=== PATIENT | male | born 1985 | race Caucasian/White ===

== ENCOUNTER 2016-12-02 11:52 | Inpatient (IN) | payer OTHER ==
[~2016-12-02] VITALS: Ht 182.9 cm; Wt 86.2 kg
--- NOTE | ~2016-12-02 | INDIVTXPL2 ---
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 Goal: Client is to help build his self-esteem and address his bullying from childhood to help his recovery. Objectives/Activities to achieve goal: 1. Client is to write down 10-20 good qualities about himself, and then interview 8 peers and 3 staff to name 2 good qualities they see in him and add these to his list. Share with counselor. Due Date: 12/24/16 Complete: Incomplete: 2. Client is to learn/get oriented about EMDR and review safe-place with client. See counselor note. Due Date: 12/20/16 Complete: Incomplete: 3. Client if willing, can do EMDR on his childhood trauma of bullying with counselor to help strengthen his self-esteem and recovery. See counselor note. Due Date: 12/25/16 Complete: Incomplete: Client Signature Date Counselor Signaure: Date Outcome/Measurement of Progress Towards Goal: Counselor Signature: Date "
--- NOTE | ~2016-12-02 | TXPLANREV ---
"PATIENT: SUMIT KING | | [facility] UNIT #: [id number] | [address] AGE/SEX: 31 M : 89 | [address] | [place] [address] ADMIT/REG DATE: 12/02/16 | ROOM: [facility] LOC: ADTC | ADTC | Treatment Plan/Staffing Review Date: 12/24/16 Treatment plan was reviewed and determined appropriate as written: yes, client is finishing feelings letter to parents, did EMDR on shock of dads cancer diagnosis and got alot out of it. Now is to work on Relapse prevention and call sponsor. Treatment plan was reviewed and the following changes/addition/deletions are necessary: Discharge plans were reviewed and determined appropriate as previously documented: Client discharges 12/30/16 and has interview with [facility] 12/26 at 9am and they may have bed for him Saturday 12/30. He has been referred to [facility]. Discharge plans were reviewed and determined to be as follows: Other pertinent issues discussed during this staffing review include: Client is doing well, switched to a positive attitude about staying in [place] and applying to the [facility] or if no openings even the [facility]. He was selected by staff to be one of the next possible client leaders. Staff Present: Tomasz Latham, Michelle Santizo, Suzan Johnson, Dereck Rose, Lucila Ramirez, Yen Hook PRIMARY COUNSELOR: Gloria Elliott Client Signature Counselor Signature Date Time "
--- NOTE | ~2016-12-02 | INDIVTXPL2 ---
"PATIENT: SUMIT KING | | [facility] UNIT #: [id number] | [address] AGE/SEX: 31 M : 89 | [address] | [place] [address] ADMIT/REG DATE: 12/02/16 | ROOM: [facility] LOC: ADTC | ADTC | Individualized Treatment Plan DATE: 12/17/16 Problem Statement/Issue Identified: Client relapsed/returned to drug usage after previous treatment attempts. Goal: Client is to learn how to work a stronger AA/NA program and prevent further relapses, identifying relapse tendencies and a plan to avoid relapse. Objectives/Activities to achieve goal: 1. Client is to attend Relapse Prevention classes every Friday while in treatment and participate. See class notes. Due Date: 12/24/16 Complete: Incomplete: 2. Client is to fill out A Relapse Prevention Packet, identifying his top 5 relapse triggers and develop a plan of how to avoid relapse. Share with counselor. Due Date: 12/30/16 Complete: Incomplete: Client Signature Date Counselor Signaure: Date Outcome/Measurement of Progress Towards Goal: Counselor Signature: Date "
--- NOTE | ~2016-12-02 | RESCARESUM ---
"PATIENT: SUMIT KING | | [facility] UNIT #: [id number] | [address] AGE/SEX: 31 M : 89 | [address] | [place] [address] ADMIT/REG DATE: 12/02/16 | ROOM: [facility] LOC: ADTC | ADT | Summary of Residential Care Primary Counselor: BEATRIZ Bone Date of Admission: 12/02/16 Date of Discharge: 12/30/16 Referral Source: self, corporate associate attorney and [facility] Primary Care Provider Prior to Admission: no doctor listed Admitting Diagnosis: 304.40 Stimulant use disorder-severe, 304.30 Cannabis use disorder-severe, 305.1 Tobacco dependence and dental caries. 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 He did complete Step 1 and owned his powerlessness over drugs/alcohol. Client did get and call a sponsor while in treatment and appeared to like meetings. 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 Initially he wanted to return home but when the staff talked about a [facility] would help him the best he became excited about staying in [place] and going to the [facility] house. He did write feelings letters and shared it with his parents his last day of treatment before they took him to the [facility]. They also seemed supportive of him and client showed some acceptance that his dad refuses to do any more Chemotherapy for his cancer. Client did do EMDR on his dads diagnosis of Cancer and the shock of it. Client did great job processing rating the disturbance at a 10 and down to a 1 by end of session on disturbance scale 0-10. Client had brought up being bullied by kids in school but he only rated the disturbance a 1 so did not address it with EMDR. Client did do Self-esteem assignment and showed good progress with the help of being selected to be a client service professional. Client did complete Relapse Prevention packet. Continued Obstacles to Sobriety/Relapse Issues: boredom, isolation, self-pity, stress/worry, negative attitude, worry about others or parents instead of himself, not asking for help, if struggles with life/work/not having a GF which hurts his self-esteem. Family Issues Addressed: Clients family were not able to attend family program but did come his last day for a family session and client did write feelings letter and shared it with them. He expressed that he was mad at his dad for not wanting to treat his cancer anymore but he now can understand and accept this. He did give them hugs and state he loves them. x Individual Therapy x Group Therapy x Educational Series on Substance Abuse Parents/Significant Others Attended Family Program Acute Medical Problems During the Course of Treatment Transferred to Hospital During the Course of Treatment PATIENT: SUMIT KING | | [facility] UNIT #: [id number] | [facility] AGE/SEX: 31 M : 89 | [address] | [place] [address] ADMIT/REG DATE: 12/02/16 | ROOM: [facility] LOC: ADT | [facility] | Summary of Residential Care x Accepting of Substance Abuse Problem Non-accepting of Substance Abuse Problem Required Psychological or Psychiatric Consultation During the Course of Treatment Completed AA Step # 1 During This Level of Care Significant Incidences During Treatment: Client was selected by staff to be one of the client leaders due to his apparent seriousness about his recovery. Reason For Discharge: x Completed Residential TX Goals and Ready For Next Level of Care Left Tx Against Medical Advice/Treatment Goals Not Complete Completed Residential Tx Goals But Refusing Continuing Care Recommendations Discharged Due to Noncompliance/Treatment Goals not Completed Discharged Earlier Than Planned Due to: Continuing Care Plan/Recommendations: Intensive Partial Care x Sponsor Partial Care x AA Meetings/NA Meetings Outpatient Co-dependency Services Therapeutic Community x / [facility] [place] [address] [place] [facility] Marriage Counseling Other Specific Continuing Care Plan: Client is being referred to the [facility] on 12/30/16 at 2pm. He also is referred to AA/NA and to call his sponsor daily. PRIMARY COUNSELOR: Gloria Elliott"
--- NOTE | ~2016-12-02 | INDIVTXPL2 ---
"PATIENT: SUMIT KING | | [facility] UNIT #: [id number] | [address] AGE/SEX: 31 M : 89 | [address] | [place] [address] ADMIT/REG DATE: 12/02/16 | ROOM: [facility] LOC: ADTC | ADTC | Individualized Treatment Plan DATE: 12/13/16 Problem Statement/Issue Identified: Client is experiencing family discord and distancing as a result of past alcohol or drug usage and selfish attitude. Goal: Client is to attend Family program to learn about effects of addiction on him and his family, identifying how his use hurt parents and his feelings to help him in recovery. Objectives/Activities to achieve goal: 1. Client is to write feelings letters to mom and to dad, owning how his addiction and attitude has hurt them and his feelings. Share with counselor/group/family session. Also is to own in his letter to mom his demanding/angry attitude on phone about cigs. Due Date: 12/30/16 Complete: Incomplete: 2. Client is to attend Family program on 12/19 and 12/23 to learn about effects of addiction on him and his family and is to participate in class. See notes. Due Date: 12/23/16 Complete: Incomplete: 3. If able, will have a family session on phone or his last day of treatment with his parents to process feelings letters and hear their feelings/awareness to build healthier communication and support. See family session note. Due Date: 12/30/16 Complete: Incomplete: Client Signature Date Counselor Signaure: Date Outcome/Measurement of Progress Towards Goal: Counselor Signature: Date "
--- NOTE | ~2016-12-02 | INDIVTXPL2 ---
"PATIENT: SUMIT KNIG | | [facility] UNIT #: [id number] | [address] AGE/SEX: 31 M : 89 | [address] | [place] [address] ADMIT/REG DATE: 12/02/16 | ROOM: [facility] LOC: ADTC | ADTC | Individualized Treatment Plan DATE: 12/09/16 Problem Statement/Issue Identified:Client continues to drugs despite ongoing negative consequences. Goal: Client is to learn about alcoholism/drug addiction, identifying consequences of his use and learn how to work a stronger AA/NA program of recovery. Objectives/Activities to achieve goal: 1. Client is to fill out Getting Started and Step 1 packets, identifying 10-15 ways he went against values/hurt loved ones&self. Share with counselor and share selected pages in group. Due Date: GS 12/12/16 & Step1 by 12/19/16 Complete: Incomplete: 2. Client is to get phone #'s of potential sponsors and call them weekly. Report progress to counselor. Due Date: ongoing Complete: Incomplete: 3. Client is to attend and talk at AA/NA/MEMBERSHIP [employer]ICITOR weekly, help chair a meeting and pick a topic that would help him. Client is to share progress with counselor. Due Date: ongoing Complete: Incomplete: Client Signature Date Counselor Signaure: Date Outcome/Measurement of Progress Towards Goal: Counselor Signature: Date "
--- NOTE | ~2016-12-02 | CLPRLASSUM ---
"PATIENT: SUMIT KING | | [facility] UNIT #: [id number] | [address] AGE/SEX: 31 M : 89 | [address] | [place] [address] ADMIT/REG DATE: 12/02/16 | ROOM: [facility] LOC: ADTC | ADTC | Client Problem List/Assessment Summary Date: 12/09/16 Problems identified by the client: Addiction, family/stop selfish attitude, self-esteem/trauma bullying, relapse prevention Problems identified by significant others: addiction, disrespectful Client's Strengths: good worker, loyal, understanding Problem List: Code: T Client continues to drugs despite ongoing negative consequences. Code: T Client is experiencing family discord and distancing as a result of past alcohol or drug usage and selfish attitude. 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 Code: T Client relapsed/returned to drug usage after previous treatment attempts. Code Guerrero: T: to be addressed during course of treatment O: problem noted, expected to resolve itself with abstinence--specific tx plan not required R: problem noted, will be referred upon discharge PRIMARY COUNSELOR: Gloria Elliott"
--- NOTE | ~2016-12-02 | TXPLANREV ---
"PATIENT: SUMIT KING | | [facility] UNIT #: [id number] | [address] AGE/SEX: 31 M : 89 | [address] | [place] [address] ADMIT/REG DATE: 12/02/16 | ROOM: [facility] LOC: ADTC | ADTC | Treatment Plan/Staffing Review Date: 12/16/16 Treatment plan was reviewed and determined appropriate as written: client is working on step 1 and feelings letters. Treatment plan was reviewed and the following changes/addition/deletions are necessary: Discharge plans were reviewed and determined appropriate as previously documented: Discharge plans were reviewed and determined to be as follows: Client is scheduled to discharge on 12/30/16, he has applied to [facility], wants to return home as dad has cancer, but did apply to the [facility] also. Our staff wants to refer him to sober living such as the [facility]. Staff needs to find out from his Drug Court if they allow him to live out of critical access hospital and what they expect of counseling/AA/NA attendence. Other pertinent issues discussed during this staffing review include: Clients family would benefit from involvment but they can't afford to come here plus his fathers cancer is affecting his health. Counselor will plan to at least have a phone session. Staff Present: Anabel Latham, Ashley Godoy, Lucila Ramirez, Joelle Ferguson, Dereck Rose PRIMARY COUNSELOR: Gloria Elliott Client Signature Counselor Signature Date Time "
--- NOTE | 2016-12-02 13:30 | NUR ---
ADMISSION NOTE Rights/Responsibilities: Copy given and explained to client. Signed and accepted by client. Client oriented to physical lay out of the ADTC unit, given Big Book and admission packet. A Nii was assigned. Darek Client is a 31yr old single male. 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 Lives in [place], [place]. 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 No allergies, No meds. Parents will participate in tx. Initial paperwork given and guidelines gone over. Was searched no contraband found. Doctor has been notified.
--- NOTE | 2016-12-02 16:00 | NUR ---
RECOVERY 101 1 HR/ Clients all shared and asked questions in discussions on recovery, what to work on in treatment, how to get a sponsor, opening up while here to get everything out, feelings letters, family program and EMDR therapy.
--- NOTE | 2016-12-02 16:45 | NUR ---
IS .75 hr/ Got acquainted with client, he was here 2-3 years ago. Said he had 2 months clean that time, and now is wanting recovery for himself, but is hopeful to get on Drug Court. He shared about his dad having cancer in [facility] and his leg is swelling again so it is back. He wants to be there for his dad and is sick and tired of using, said it doesn't even work to get high anymore, takes too much. He won't have drivers license and wants to live with dad on their farm cause his dad needs him, client was just there the past 2 months and stayed clean 2 months by reading Big Book and helping dad repair fence and do other chores with livestock and chickens. He is unaware of any meetings in his area so will try to help him get #'s of people and meetings list. Went over initial treatment plan and instructed him to start GS packet, oriented him to counseling.
--- NOTE | 2016-12-02 18:07 | NUR ---
Education Note: 1 hour lecture on feelings given by counselor
--- NOTE | 2016-12-02 22:34 | NUR ---
TECH NOTE: Client played charades in REC and attended on site NA meeting. Was checked into his room by tech and did first day introductions SE: 1st day here
--- NOTE | 2016-12-03 04:22 | NUR ---
Bed note: Client was in bed with eyes closed and no distress at all bed checks.
--- NOTE | 2016-12-03 14:46 | NUR ---
Education 0.5 Hour: Client attended a presentation by an outwside speaker who spoke on, "Cross Addiction."
--- NOTE | 2016-12-03 14:53 | NUR ---
Tech Note: Client particiipated in light stretching for morning exercise period and went for an outdoor walk in the afternoon. Client stated that he is working on, "How to Get Started in Treatment."
--- NOTE | 2016-12-03 18:01 | NUR ---
Relapse Prevention: 1.0 hours, 11/19, Client attended and actively participated in relapse prevention education which focused on identifying internal relapse triggers and cues.
--- NOTE | 2016-12-03 19:06 | NUR ---
Morning Group, 11/12, 1.5 hours, Client attended and actively participated in group. Client shared how he tried to remain sober but it has been difficult with his father's cancer luna.
--- NOTE | 2016-12-03 22:52 | NUR ---
Tech note: Client participated in beaded project for rec and attended an onsite AA meeting. Client was seen by DR. MONTIEL; Group
--- NOTE | 2016-12-04 03:54 | NUR ---
Bed Note; Client was asleep and in no distress at all bed checks.
--- NOTE | 2016-12-04 09:52 | NUR ---
Tech notes: Client is working on BB
--- NOTE | 2016-12-04 11:30 | NUR ---
GROUP 1.5 HRS. 1:11 Group discussion included family issues and HOW TO GET STARTED IN TREATMENT assignments. This client was mostly quiet but appeared attentive.
--- NOTE | 2016-12-04 12:43 | NUR ---
Education note: Client attended education by [facility].
--- NOTE | 2016-12-04 17:43 | NUR ---
SPIRITUaL EDUCATION 1 HR. Todays topic after orienting newcomers was GRATITUDE with information taken from ATTITUDES OF GRATITUDE.
--- NOTE | 2016-12-04 19:17 | NUR ---
Education: 1 Hour. Client attended "Unresloved Anger" lecture and discussion presented by staff.
--- NOTE | 2016-12-04 22:54 | NUR ---
Tech note; Client played catch phrase for rec and attended an onsite NA meeting. SE; NA meeting
--- NOTE | 2016-12-05 04:27 | NUR ---
Bed Note: Client was asleep and in no distress at all bed checks.
--- NOTE | 2016-12-05 10:35 | NUR ---
Tech Note: Client participated in light stretching for morning exercise and stated that he is working on Step One.
--- NOTE | 2016-12-05 11:49 | NUR ---
Group 1.5 Hr Ratio 1:11/Topics today were a feelings letter and a GS packet. Client shared how he could relate to having expatations and how it dosen't work.
--- NOTE | 2016-12-05 15:10 | NUR ---
IS 1.25 hr/Client and counselor went over his GS packet and his BPS and got to know clients needs and issues better. After session he asked to call his mom again and when did client demanded she bring raad DUARTE and they live 70 miles away, and when she was hesitant he used the "f" word so counselor asked for the phone and did talk with mom and say it is not urgent, informed them of visiting hours and encouraged her to have boundaries to hang up on him if he talks that way to her. Counselor questioned if going home is good, but the mom did indicate they generally get along and he would need a full-time job, and [place] is bad playground for clients addiction.
--- NOTE | 2016-12-05 17:04 | NUR ---
Step ed/1 hr/ Handed out a worksheet on step 11 on prayer and meditation and had them complete and then we discussed. This client participated.
--- NOTE | 2016-12-05 17:46 | NUR ---
Education 1 Hour: Client heard a presentation from a member of the recovery community who shared his experience, strength and hope.
--- NOTE | 2016-12-05 18:48 | NUR ---
1HR Education: Clt watched a video entitled "Don't Meth With Me".
--- NOTE | 2016-12-05 23:35 | NUR ---
TECH NOTE: Client played Catch Phrase for REC, participated in Guided Meditation and attended on site AA meeting. SE: meeting with counselor
--- NOTE | 2016-12-06 04:50 | NUR ---
BED NOTE: Client was in bed, eyes closed and motionless all three bed checks
--- NOTE | 2016-12-06 11:30 | NUR ---
Group 1.5hr/ 11:1 Clients heard peer share GS packet, gave feedback and got into deep discussions about recovery. This client did ask to share his GS but ran out of time.
--- NOTE | 2016-12-06 13:46 | NUR ---
PEER REVIEWS 1 HR: CLt participated in peer reviews and was able to give open and honest feedback to those receiving a review.
--- NOTE | 2016-12-06 15:32 | NUR ---
Tech Note: Client watched a video entitled "The Enablers" and is working on Getting Started.
--- NOTE | 2016-12-06 20:32 | NUR ---
TECH NOTE: Client participated in reading guidelines, watched TV/movies SE: first full week
--- NOTE | 2016-12-07 04:45 | NUR ---
BED NOTE: Client was in bed, motionless with eyes closed all bed checks.
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
--- NOTE | 2016-12-07 15:32 | NUR ---
Tech notes: Client attended NA panel this morning and working on Step 1. Had visit.
--- NOTE | 2016-12-07 18:36 | NUR ---
tech note: client attended offsite recovery event.
--- NOTE | 2016-12-08 04:36 | NUR ---
Bed Note: Clt lay motionless in bed with eyes closed showing no distress at last two bed checks. The first bed check clt was using restroom.
--- NOTE | 2016-12-08 15:03 | NUR ---
Tech Note: Client participated in big book study and is working on step 1.
--- NOTE | 2016-12-08 23:03 | NUR ---
Tech note: watched TV SE:walking
--- NOTE | 2016-12-09 04:33 | NUR ---
BED NOTE: Client was in bed, motionless, with eyes closed all bed checks.
--- NOTE | 2016-12-09 10:18 | NUR ---
Tech notes: Client is working on Step 1
--- NOTE | 2016-12-09 11:30 | NUR ---
Group 1.5hr/ 2:22 Clients all participated in THE WALL reading, drawing and sharing about their hart with the group showing character defects and relapse triggers, plus what has helped them go gain hope and support in taking down their wall.
--- NOTE | 2016-12-09 12:50 | NUR ---
Education note: Client attended education by [facility], HIV testing.
--- NOTE | 2016-12-09 17:03 | NUR ---
Recovery 101 1 hr/ Clients involved in identifying and discussion about fundamentals of recovery. Did discuss types of meetings, how to get and use sponsors, working steps, reading NOAM literature, using slogans/serenity prayer/tools, not to start new relationship first year, encourage family to go to [facility] and open AA/NA, finding a HP/home group, HOW/sayings/slogans, etc.
--- NOTE | 2016-12-09 18:18 | NUR ---
Education: 1 Hour. Client attended "Forgiveness" lecture given by staff.
--- NOTE | 2016-12-09 22:41 | NUR ---
tech note: client played Catch Phrase for recreation & chaired the NA meeting. SE: chairing the meeting.
--- NOTE | 2016-12-10 05:11 | NUR ---
Tech Note: Clt lay motionless in bed with eyes closed showing no distress at all bed checks.
--- NOTE | 2016-12-10 09:15 | NUR ---
IS 1 hr/ Client is about done with step 1, is doing good job. He said he would consider going to 1/2way [place] but is not IV user. Client is to write out the script of his call to his mom last Friday, showing how he gets demanding/selfish and cusses and is to work on that.
--- NOTE | 2016-12-10 11:30 | NUR ---
GROUP 1.5 HRS. 1:9 This client shared from his HOW TO GET STARTED IN TREATMENT as assiged. He became tearful as he shared about dad's cancer and how difficult it is for him to walk by cancer treatment center when out for exercise.
--- NOTE | 2016-12-10 13:49 | NUR ---
Education 1 Hour: Client attended a presentation on "Tobacco Educaton."
--- NOTE | 2016-12-10 15:13 | NUR ---
Tech Note: Client stated that he is working on, "How to Get Started in Treatment." Client walked in the halls for afternoon exercise period.
--- NOTE | 2016-12-10 15:55 | NUR ---
Relapse Prevention, 1.0, Client attended and actively participated in relapse prevention education which focused on the relapse quiz "What Do You Know About Relaps?"
--- NOTE | 2016-12-10 22:41 | NUR ---
Education note: 1 hour, lecture given by counselor on what paul are you willing to pay.
--- NOTE | 2016-12-10 22:56 | NUR ---
Tech note: Instead of rec clients went to an alumni meeting and attended an onsite AA meeting. SE; Group
--- NOTE | 2016-12-11 04:16 | NUR ---
Bed Note: Client was in bed with eyes closed and in no distress at all bed checks.
--- NOTE | 2016-12-11 10:21 | NUR ---
Tech Notes: Client is working on Step 1.
--- NOTE | 2016-12-11 10:35 | NUR ---
SPIRITUAL EDUCATION 1 HR. Topics today were on getting out of self centered behavior and recovery slogans. Clients made BB bookmarks w slogans and also anonymously wrote welcoming letters for newcomers.
--- NOTE | 2016-12-11 11:30 | NUR ---
GROUP 1.5 HRS. 1:10 Group discussion included HOW TO GET STARTED IN TREATMENT as well as defenses and conflicts on the unit. This client was mostly quiet but appeared attentive.
--- NOTE | 2016-12-11 17:52 | NUR ---
ducation Note: Client attended education speaker Jonny
--- NOTE | 2016-12-11 20:41 | NUR ---
Education: 1 hour lecture on boundaries given by counselor
--- NOTE | 2016-12-11 22:05 | NUR ---
Tech note : Client participated in rec by playing catch phrase and attended an onsite NA meeting. SE; Toothache gone
--- NOTE | 2016-12-12 03:48 | NUR ---
Bed note : Client was motionless and in no distress at all bed checks.
--- NOTE | 2016-12-12 10:14 | NUR ---
Tech Note: Client participated in light stretching for morning exercise. Client stated that he is working on Step One.
--- NOTE | 2016-12-12 11:44 | NUR ---
Group 1.5hors 1:8 Clients shared feelings letters and went over assignments. Client was quiet most of group but did offer feedback towards the end about how he related to his peers stories. Student: Rosaline Agarwal
--- NOTE | 2016-12-12 13:49 | NUR ---
Education 1 Hour: Client watched the vidoe, "Predator" by Raphael Mirza.
--- NOTE | 2016-12-12 15:48 | NUR ---
Step education/1 hr/ Focus was on step 12 Having had a spiritual awakening as a result of these steps... Each person completed some questions on paper and then we discussed answers. This client participated.
--- NOTE | 2016-12-12 20:59 | NUR ---
Education: 1 Hour. Client attended "Spiritual Awakening" video.
--- NOTE | 2016-12-12 22:48 | NUR ---
Tech Note: Client played a game for recreation and attended onsite A.A. Meeting SE: Parents brought cigarettes
--- NOTE | 2016-12-13 04:10 | NUR ---
Tech Note: Client was motionless with no distress at all bed checks.
--- NOTE | 2016-12-13 12:15 | NUR ---
Group 1.5 Hr Ratio 1:9/Topics today were feelings letters and two new peers were orientated to group rules and goals. Client shared a feelings letter to his dad and received feedback as to how peers could relate to him.
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
--- NOTE | 2016-12-13 15:46 | NUR ---
Tech Note: Client joined in outdoor group walk, watched "Marijuana" video (by Raphael Mirza) and is working on the [email or web address] Book.
--- NOTE | 2016-12-13 23:14 | NUR ---
TECH NOTE: Client participated in reading guidelines, watched tv/movies and attended optional AA meeting. SE: walk
--- NOTE | 2016-12-14 04:18 | NUR ---
Bed Note: Clt lay motionless in bed with eyes closed showing no distress at all bed checks.
--- NOTE | 2016-12-14 15:50 | NUR ---
Tech Note: Client attended an off-site AA meeting. Client stated that he is working on writing Feelings Letters. Client received visitors.
--- NOTE | 2016-12-14 20:01 | NUR ---
TECH NOTE: Client played Charades in REC, attended off site AA meeting and watched tv/movies SE: visitors
--- NOTE | 2016-12-15 04:38 | NUR ---
Bed Note: Clt lay motionless in bed with eyes closed showing no distress at all bed checks.
--- NOTE | 2016-12-15 14:36 | NUR ---
Tech Note: Client stated that he is working on writing Feelings Letters. Client went for an optional outdoor walk.
--- NOTE | 2016-12-15 23:07 | NUR ---
Tech Note: Client attended A.A.Panel. Client watched tv and used phone. Client also attended the [employer] meeting. SE: [facility] meeting
--- NOTE | 2016-12-16 04:28 | NUR ---
Bed Note: Clt lay motionless in bed with eyes closed showing no distress at all bed checks.
--- NOTE | 2016-12-16 09:44 | NUR ---
Tech Notes: Client is working on Step 1 and Fl's.
--- NOTE | 2016-12-16 12:52 | NUR ---
Morning Group, 11/12, 1.5 hours, Client attended and actively participated in group. Client shared his frustration of being asked to go to a halfway house becasue he has been offered a job and needs to be home because his dad is sick. Client accepted feedback from his peers and was asked to sit in the sancutary and give it up to God.
--- NOTE | 2016-12-16 13:45 | NUR ---
nubia note: Client attended speaker Johan Vela
--- NOTE | 2016-12-16 15:59 | NUR ---
Recovery 101 1hr/ Clients all filled out Questionaire on consequences of their any of the chemicals they have used to help dispel any minimizing. Some clients discussed relating to most all of the consequences, all discussed early stage symptoms of addiction they would of had in first 1-2 years of use, discussed early/middle/late stages, disease concept and a definition of addiction that includes all stages (focussed on the loss of control and risking further problems). Many asked good questions and shared personal
--- NOTE | 2016-12-16 22:31 | NUR ---
Tech Note: Client attended N.A.Meeting. SE: Court
--- NOTE | 2016-12-16 23:00 | NUR ---
Education Note: One hour lecture on adult children of alcoholics given by counselor.
--- NOTE | 2016-12-17 04:03 | NUR ---
Bed Note: Client was in bed with eyes closed and motionless at all bed checks.
--- NOTE | 2016-12-17 10:00 | NUR ---
IS 1 hr/ Client and counselor went over his assignments, he has started letters to parents but hasn't finished page 10-11 of step 1 so is to get that done first and include what he has on those pages in his letters. Discussed his aftercare and he says he can get $14/hour job at [employer] at home so is excited to go home now!!! Counselor said will staff today and the staff could suggest he stay in for [facility] until stable, then could go home, counselor said she doesn't want him home if he can't treat his parents with respect as he was cussing/demanding with mom on phone "sober". Client said he will be respectful.
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
--- NOTE | 2016-12-17 16:00 | NUR ---
Relapse Prevention, 11/18, 1.0 hours, Client attended and actively participated in relapse education which focused on compulsive behaviors and relapse.
--- NOTE | 2016-12-17 16:39 | NUR ---
Education Note: Client participated in Relapse Prevention education.
--- NOTE | 2016-12-17 18:18 | NUR ---
Education: 1 HOUR. Client attended "Codependency" lecture given by staff.
--- NOTE | 2016-12-17 22:21 | NUR ---
TECH NOTE: Client played Catch Phrase for REC, participated in Guided Meditation, and attended AA meeting. Was upset after AA meeting, spent time in the chapel SE: AA meeting
--- NOTE | 2016-12-18 04:31 | NUR ---
tech note: client was motionless in no distress @ all bed checks.
--- NOTE | 2016-12-18 11:11 | NUR ---
Tech notes: Client is working on Fl's.
--- NOTE | 2016-12-18 12:51 | NUR ---
Group 1.5hrs 1:9 Clients shared feelings letters and received feedback from peers. Client was quiet most of the session but discussed his appreciation for his peers when he was sharing his feelings.
--- NOTE | 2016-12-18 13:18 | NUR ---
Education note: Client attended speaker Ricardo for education.
--- NOTE | 2016-12-18 16:40 | NUR ---
IS .5 hr/ Client rewrote letter to parent as first one was blame his addiction on dads cancer, but 2nd one seemed to still hint at that and lacked ownership of how bad his use had hurt parents. Counselor had him read page 11 of step 1 and helped show how to write letter owning specifics. He expressed appreciation. Did discuss staffing review with him and how he does appear to need a 1/2way house depending on what his drug court would allow. He had applied to [facility] but had heard fromparents could get job at local [employer]. He was angry and upset with staffs recommendations and said he needs to be there for dad.
--- NOTE | 2016-12-18 17:25 | NUR ---
SPIRITUAL EDUCATION 1 HR. We oriented newcomers to spirituality group, and todays activities were putting on presentations from parts of TOWARDS SPIRITUALITY book.
--- NOTE | 2016-12-18 22:34 | NUR ---
tech note: Client played Pictionary for recreation & attended onsite NA meeting. SE: Group.
--- NOTE | 2016-12-18 23:26 | NUR ---
Eduction: 1 Hour. Client attended "Disease Concept" lecture.
--- NOTE | 2016-12-19 05:34 | NUR ---
tech note: Client was motionless in no distress at all bed checks.
--- NOTE | 2016-12-19 10:03 | NUR ---
Tech Note: Client participated in Spiritual Enrichment. Client stated that he is working on Step One and writing Feelings Letters.
--- NOTE | 2016-12-19 15:31 | NUR ---
Education 1 Hour: Client heard a panel of speakers from the local recovery community, who shared their experience, strength and hope.
--- NOTE | 2016-12-19 17:18 | NUR ---
FAMILY EDUCATION 3 HRS. Client attended alone and took part in the discussion on the disease concept. Client shared chemical history and the consequences.
--- NOTE | 2016-12-19 23:17 | NUR ---
TECH NOTE: Client redecorated the building for [employer], participated in Guided Meditation and attended on-site AA meeting. SE: group
--- NOTE | 2016-12-20 04:33 | NUR ---
Bed Note: Clt lay motionless in bed with eyes closed showing no distress at all bed checks.
--- NOTE | 2016-12-20 11:30 | NUR ---
Group 1.5hr/ 9:1 Clients heard peers share GS/Step 1 packets and this client did relate and was attentive.
--- NOTE | 2016-12-20 14:11 | NUR ---
IS 1 hr/ Client and counselor discussed [facility] release and he wants to get in there, they asked for us to send the rest of the information to them. Client is glad, he said in AM group he admitted his dad smokes pot for pain and he knows his support is here in [place] so wants to stay here. [place] a peer offer to drive him to see dad as needs to. If no openings at [facility] then would be ok with [facility] so need to get release for that and set up interview. Client is going to rewrite letter to parents, then is to read some on spiritual strength and coping with difficulties. Client did EMDR today on hearing his dad had cancer as he rated it a 10+ and rated childhood bullying a 1 on 0-10 disturbance scale. Client did EMDR and breathed heavy, wiped away tears and said he knows he needs to stay sober and that dad will be better off when has no more pain as client feels God will take him to Heaven. Client and counselor talked about how he can have hayden and eternal life. Client seems to have alot of knowledge he said from his grandma, as he wasn't a jewish attender.
--- NOTE | 2016-12-20 15:43 | NUR ---
Tech Note: Client watched the second half of Ple[employer] for education and is working on Step 1 and Feelings Letters.
--- NOTE | 2016-12-20 20:15 | NUR ---
Tech note: client watched tv and movies, attended offsite AA meeting SE:[facility]
--- NOTE | 2016-12-21 04:22 | NUR ---
Bed note: client was in bed with eyes closed and no distess at all bed checks
--- NOTE | 2016-12-21 16:18 | NUR ---
Tech Note: Client attended N.A.Panel and is working on Feelings Letters.
--- NOTE | 2016-12-21 20:00 | NUR ---
tech note: Client did service work at offsite location where clients attended the AA meeting. Client was redirected by tech to remove the partially smoked cigarette from behind his ear-client mumbled as he walked away. SE: Nap.
--- NOTE | 2016-12-22 04:53 | NUR ---
Bed Note : Client had eyes closed and in no distress at all bed checks.
--- NOTE | 2016-12-22 14:19 | NUR ---
Tech Note: Client has no assignments. Client attended judaism today and had a visit.
--- NOTE | 2016-12-22 23:27 | NUR ---
TECH NOTE: Client attended AA panel, participated in community clean and watched tv/movies. SE: [facility]
--- NOTE | 2016-12-23 04:13 | NUR ---
BED NOTE: Client was in bed, motionless with eyes closed all three bed checks.
--- NOTE | 2016-12-23 10:36 | NUR ---
Tech notes: Client is working on Fl's.
--- NOTE | 2016-12-23 12:40 | NUR ---
Experiential Group 1.5 hr/ Clients all participated in family sculpturing by role-playing, feedback, and relating. They also shared what they needed to get help with and a gratitude. He is grateful for treatment and this time he is paying attention better, and wants help with looking at self in a positive way.
--- NOTE | 2016-12-23 13:30 | NUR ---
Education note: Client watched video "It can't happen to me"
--- NOTE | 2016-12-23 17:00 | NUR ---
FAMILY EDUCATION 3 HRS. Client attended alone and took part in the discussion in the family roles, codependency and detachment. Client related to lost child and family hero roles.
--- NOTE | 2016-12-23 19:05 | NUR ---
Education 1HR: Clt attended lecture given by counselor on "Communication".
--- NOTE | 2016-12-23 21:00 | NUR ---
FAMILY GROUP 4:1/2HR: Client, peers and attending family members heard this client and another male peer process FEELINGS LETTERS. Most related to the behaviors and feelings described in the letters. This client attended alone, but heard lots of feedback from another residential female peer about how "he should handle his mother." The letter this client processed was to his mom with client basically stating to mom, "I need space and I need to be allowed to have my own feelings!" From what client shared, he is the one everyone leans on and expects him to "fix" their problems. He talked about his dad fight with cancer and the responsibility laid on this client in spite of his chemical use. Client praised for his decision to take care of his own recovery and go to a [facility], but he is struggling with how his parents will receive this news. One older female was especially verbal as she has known him and his mom prior to treatment. She told him that she would be there for him and beside him when he tells his mom and she would support him. Client heard that he needs to discuss his fear with his counselor.
--- NOTE | 2016-12-23 22:16 | NUR ---
Tech note: Client attended family. SE: All day
--- NOTE | 2016-12-24 05:04 | NUR ---
Bed note : Client was motionless with eyes closed at all bed checks.
--- NOTE | 2016-12-24 11:30 | NUR ---
GROUP 1.5 HRS. 1:8 Clients oriented new peer to purpose and rules of group. Group discussion included effects on loved ones and family/kids as well as relapse triggers and prevention. This client was mostly quiet but appeared attentive.
--- NOTE | 2016-12-24 16:24 | NUR ---
Tech Note: Client watched video The Enabler and is working on the Big Book.
--- NOTE | 2016-12-24 17:14 | NUR ---
IS 1 hr/ Client and counselor got call from [facility] that he has interview 9am and may get bed on Friday when he discharges. Client was given relapse prevention packet. Client expressed appreciation again with how EMDR helped him to calm down and accept his fathers cancer, not so stressed. He voiced how happy he is to get into the [facility], counselor clarified that it looks like he could get in but the interview and the state of [place] makes that final determination. Client wants to stay here. Did call his mom and they can come Friday to transport him and have family session, client can share letter at that time. His mom said she is happy for him to get in [facility] also!!
--- NOTE | 2016-12-24 18:45 | NUR ---
Education: 1 Hour. Client attended presentation given by [facility] AIDS/STDS/HIV. HIV testing was available.
--- NOTE | 2016-12-24 20:13 | NUR ---
Relapse Prevention,11/22 1.0, Client attended and participated in relapse prevention education which focused on internal and external triggers.
--- NOTE | 2016-12-24 23:02 | NUR ---
Tech note: Client participated in rec by playing pictionary. Client went to guided meditation and attended an onsite AA meeting. SE: [place] [facility]
--- NOTE | 2016-12-25 05:28 | NUR ---
tech note: client was motionless in no distress at all bed checks.
--- NOTE | 2016-12-25 10:14 | NUR ---
Tech Notes: Client is working on Relapse Prevention
--- NOTE | 2016-12-25 12:00 | NUR ---
AM GROUP 10:1/1.5 HR: Client and peers helped to ORIENT A NEW PEER TO GROUP GUIDELINES, GOALS, & OBJECTIVES. Two group members processed from assignments but much of the examples they gave and personal sharing focused on how addiction affects children at any age. This client was mostly quiet but said he did relate to some of the defenses (minimizing, justifying) that one of his peers owned. He was otherwise attentive.
--- NOTE | 2016-12-25 16:00 | NUR ---
SPIRITUAL EDUCATION 1 HR. We started a two part education on Forgiveness today and group discussion on azevedo points.
--- NOTE | 2016-12-25 23:05 | NUR ---
Tech note:Client participated in rec-worked on beaded projects SE:Got 30 day coin in NA meeting
--- NOTE | 2016-12-25 23:38 | NUR ---
Education: 1 hour lecture on step 2 & 3 given by counselor
--- NOTE | 2016-12-26 04:36 | NUR ---
Bed note: client was in bed with eyes closed and no distress at all bed checks.
--- NOTE | 2016-12-26 11:53 | NUR ---
Group 1.5hrs 1:10 Two new clients were orientated about group goals and rules. Feelings letters were shared and feedback was given by peers. Client shared how he related about his dad also having cancer. Client also shared how he was getting more out of this treatment stay than at other places. Student- Rosaline Agarwal
--- NOTE | 2016-12-26 14:19 | NUR ---
Education 1 Hour: Client heard a presentation on, "Marijuana."
--- NOTE | 2016-12-26 14:48 | NUR ---
Tech Note: Client participated in Spiritual Enrichment in the morning and walked in the halls for afternnon exercise. Client met with representatives from a residential house.
--- NOTE | 2016-12-26 16:39 | NUR ---
Education: 1hr Participated in Step 2 work group. Very involved in the group discussion.
--- NOTE | 2016-12-26 17:00 | NUR ---
IS 1 hr/ Client and counselor did go over his Relapse Prevention packet, he did good job and still has last 2 pages to do. He went over his top relapse triggers, and discussed how he can avoid relapse. He is glad he gets to go to [facility] and talked with him it will be 1 week after he is at [facility] that he can go home. Did call his parents and they will come for family session at 1pm Friday to hear his feelings letter and then take him to [facility]. Client and counselor did fill out Continued Care Plan.
--- NOTE | 2016-12-26 23:03 | NUR ---
Tech Note: Client participated in rec and attended A.A.Meeting.
--- NOTE | 2016-12-26 23:19 | NUR ---
Education Note: Client watched the healthy families video which lasted an hour.
--- NOTE | 2016-12-27 04:37 | NUR ---
Bed note: Client was in bed with eyes closed and no distress at all bed checks.
--- NOTE | 2016-12-27 11:30 | NUR ---
AM GRP 1.5 hrs, Ratio 1:11/ Grp was very confrontational. This clt was not confronted on anything, but he did give good feedback to some who were.
--- NOTE | 2016-12-27 14:36 | NUR ---
PEER REVIEWS 1 HR: Clt participated in peer review process and was able to give open and honest feedback to those receiving a review.
--- NOTE | 2016-12-27 16:21 | NUR ---
Tech Note: Client watched a video "How to Sabotage Your Treatment" and is working on the Big Book.
--- NOTE | 2016-12-27 23:31 | NUR ---
TECH NOTE: Client participated in guideline reading, watched tv/movies and used the phone. SE: all day
--- NOTE | 2016-12-28 04:47 | NUR ---
BED NOTE: Client was in bed, motionless with eyes closed all three bed checks.
--- NOTE | 2016-12-28 12:54 | NUR ---
Tech Note: Client c/o insect bite or pimple on buttocks. Stated that it was size of bisquit, very red and hot to the touch. Temp taken (96.9). Nurse called at home and warm compress advised. If skin opens up, triple antibiotic ointment is advised.
--- NOTE | 2016-12-28 15:21 | NUR ---
PEER REVIEWS 1 HR: Clt participated in peer review process and received his own. He heard he lost, trying to find meaning, he needs to reach out, holds his guilt and shame, gets hurt easily, doesn't care about himself, puts others first, needs to grow up and not rely on his parents, needs to take charge of his own life, stubborn. Client shared he felt afraid and glad.
--- NOTE | 2016-12-28 16:03 | NUR ---
Tech Note: Client went to AA mtg at [address] [place] [address]. Is working on the Big Book.
--- NOTE | 2016-12-28 19:57 | NUR ---
TECH NOTE: Client played Catch Phrase for REC, attended off site AA meeting, watched TV/movies and used phone. SE: [place]
--- NOTE | 2016-12-29 04:44 | NUR ---
Bed Note: Clt lay motionless in bed with eyes closed showing no distress at all bed checks.
--- NOTE | 2016-12-29 11:14 | NUR ---
Tech Note: Clt asked if he could take hot bath during day as it helps the pain of his skin boil. Called nurse and this was okayed.
--- NOTE | 2016-12-29 15:49 | NUR ---
Tech Note: Client participated in Big Book Study. Client stated that he is working on reading the Big Book.
--- NOTE | 2016-12-29 22:49 | NUR ---
TECH NOTE: Client attended AA panel, participated in community clean and watched tv/movies. Bag was taken out of storage to pack for discharge tomorrow. Attended ANGIOGRAPHER meeting SE: all day
--- NOTE | 2016-12-30 04:21 | NUR ---
Bed Note: Clt lay motionless in bed with eyes closed showing no distress at all bed checks. Clt came out of room at 0251 hrs for a PRN stating boil on butt was waking him up. Wanted to take a shower and was allowed too,
--- NOTE | 2016-12-30 10:14 | NUR ---
Jd notes: Client is working on BB and mtg with gi
--- NOTE | 2016-12-30 11:30 | NUR ---
Morning Group, / ratio, 1.0 hours, Client attended and actively participated in group therapy.
--- NOTE | 2016-12-30 12:40 | NUR ---
Education Note: Client attended educational speaker Kit on Crossaddiction.
--- NOTE | 2016-12-30 13:00 | NUR ---
FAMILY SESSION .5 HR/ Client, his parents and this counselor met for family session. They are very proud of him and notice a change. Client admits he wasn't very serious after last treatment and slacked on meetings, never had sponsor and did relapse with using boss. Client read his feelings letter to his parents. His dad has cancer and is dying, his dad stated he has accepted this, will not do Chemo again and it is harder on them to think of being without him. Client did address this in his letter that he can accept his dad doesn't want any more chemo. Client has done well, is to go to [facility] by 2pm, 1st they will pick up and delivery driver medicine that is being paid by voucher from [facility] as his parents have no money. Client appeared appreciative.
--- NOTE | 2016-12-30 13:11 | NUR ---
DISCHARGE NOTE Client left tx with parents all personal belongings were sent with. Discharge instructions gone over and copy given.
--- NOTE | 2017-02-16 15:25 | DS ---
ADMIT: 12/02/2016 RM/LOC: [facility] MR#: [id number] [facility] [address] [place] [id number] SANDIE KING [address] [place] [id number] [facility] General Discharge Summary SEX: M AGE: 31 : 1985 ADMISSION DATE: 12/02/2016 DISCHARGE DATE: 12/30/2016 INDICATION FOR HOSPITALIZATION: Sandie is a 31-year-old, single, white male, admitted to residential level treatment at [facility] on December 02 after detox at [facility] November 23 through the . Sandie's drug of choice on admission is methamphetamines. Second drug of choice is cannabis. Please see his admission H and P for the details regarding his history of present illness, past medical history, physical exam, and assessment at time of hospitalization. HOSPITAL COURSE: On admission, sandie was admitted to our residential level treatment choi. He was placed on a multivitamin. Amoxil and Motrin were added due to concerns of infected tooth some possible periapical abscess. That was later changed to Keflex and doxycycline. During treatment, Sandie's primary care counselor assigned was Gloria Elliott. During treatment, he underwent individual and group therapy sessions on drug and alcohol abuse and dependency. He completed an educational series on substance abuse. Relapse triggers were identified, and relapse prevention plan was outlined. Spirituality issues were addressed. His family was unable to attend the family portion of treatment program. Sandie did write feelings letters and shared with his family. Overall, Sandie was accepting of substance abuse problems. He completed step 1 of Alcoholics Anonymous. 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 Reason for discharge was completion of residential level treatment goals. Aftercare recommendations include admission to the [facility], sponsor assignment, and active AA and NA meeting involvement. MEDICATIONS: At time of discharge include: 1. Multivitamin 1 daily. 2. Keflex 500 mg 2 b.i.d. for 10 days. 3. Doxycycline 100 mg b.i.d. for 10 days. ADMIT: 12/02/2016 RM/LOC: [facility] MR#: [id number] [id number] SANDIE KING [facility] [address] [place] [address] [facility] General Discharge Summary SEX: M AGE: 31 : 1985 LABORATORY AND X-RAY DATA: None. FINAL DISCHARGE DIAGNOSES: Include: 1. Stimulant use disorder, severe. 2. Cannabis use disorder, severe. 3. Dental caries with possible periapical abscess. 4. Tobacco dependency. PROCEDURES: Include drug and alcohol abuse and dependency treatment and counseling and medical therapy for his dental caries. Please see his hospital record for the details. Art Garcia MD/ robert JOB #: [id number] CC: Art Garcia MD, Attending Physician FAMILY PHYSICIAN, Family Physician
== END 2016-12-30 13:12 | disposition home or self-care (01) | DRG 895 ==
LOC: ADTC 11:52
PROVIDERS: ADMIT Family Medicine
DX: F15.20 Other stimulant dependence, uncomplicated (principal); F12.20 Cannabis dependence, uncomplicated; F17.210 Nicotine dependence, cigarettes, uncomplicated; K02.9 Dental caries, unspecified; Z81.1 Family history of alcohol abuse and dependence